=== PATIENT | female | born 1955 | race Caucasian/White ===

== ENCOUNTER 2025-01-17 13:52 | Emergency (ER) | payer MEDICARE, SELFPAY ==
[2025-01-17 13:55] VITALS: BP 121/66; PULSE 75; RESP 16; TEMP 36.6; O2SAT 97; BMI 24.3
--- NOTE | 2025-01-17 14:06 | ED_ITS ---
<Statement entered by Zach Chong, - 01/17/25 17:06> Dr. Chong: I was immediately available in the department for consultation. I did not actually see the patient. HPI - Extremity Injury (Upper) General Chief Complaint: Extremity Problem,Nontraumatic Stated Complaint: R wrist pain - broken? Time Seen by Provider: 01/17/25 14:05 History of Present Illness HPI narrative: Ms. Alcantar is a pleasant 69-year-old female with a past medical history of lymp dorys in remission who presents to the emergency department for right wrist pain x 2 weeks. She is right-hand dominant. She noticed the pain started about 2 weeks ago after lifting heavy boxes. She picked up a box and immediately felt some pain in the wrists and with a box back down. Pain is focally over the ulnar aspect of the right wrist. She has continued doing her normal exercise, biking and other activity since then. She has been wearing a brace she purchased [id number]. Was playing pickleball last week and feeling well. Yesterday she went on a long bike ride and noticed that the ulnar right wrist pain became much worse and has been throbbing. He denies any fall or direct trauma to the wrist. She denies any numbness tingling or weakness distal to the pain. She took 3 aspirin this morning which did help. Reports injuring the right wrist as well many years ago. No fevers or chills or rashes. No other concerns. Related Data Allergies Allergy/AdvReac Type Severity Reaction Status Date / Time No Known Drug Allergies Allergy Verified 01/17/25 14:00 Review of Systems Review of Systems ROS Unobtainable: All systems reviewed & are unremarkable except as noted in HPI and below Exam Narrative Exam Narrative: GENERAL: 69 year old patient appears stated age. Well-developed patient, in no acute distress. HEAD: Atraumatic. Normocephalic. NECK: Trachea midline. Cervical ROM intact. CARDIOVASCULAR: Regular rate RESPIRATORY: ?Nonlabored respirations. ?Speaking in clear, full sentences. EXTREMITIES: 2+ radial pulses bilaterally and sensation and strength intact in the distribution of the median, ulnar, radial nerves bilaterally. Patient has tenderness and mild edema of the ulnar aspect of the right wrist. There is some mild erythema in this area. There is no induration, fluctuance or crepitus. She is still is able to flex, extend, pronate, supinate the wrist. NEURO: AOx3. ?Clear speech. ?Moves all 4 extremities appropriately. SKIN: Mild erythema ulnra aspect R wrist. Otherwise skin is warm, dry, no rashes. Initial Vital Signs Initial Vital Signs: Vital Signs Temperature 97.8 F 01/17/25 13:55 Pulse Rate 75 01/17/25 13:55 Respiratory Rate 16 01/17/25 13:55 Blood Pressure 121/66 01/17/25 13:55 Pulse Oximetry 97 01/17/25 13:55 Oxygen Delivery Method Room Air 01/17/25 13:55 Course Orders Ordered: ED Orders 01/17/25 14:06 XR wrist RT min 3V Stat Vital Signs Vital signs: Vital Signs - 8 hr 01/17/25 13:55 01/17/25 15:02 Temperature 97.8 F 97.4 F L Pulse Rate 75 74 Respiratory Rate 16 16 Blood Pressure 121/66 120/67 Pulse Oximetry 97 99 Oxygen Delivery Method Room Air Room Air MDM - Extremity Injury (Upper) Medical Records Medical records narrative: None available for review Imaging Data Right Wrist XR: Radiologist's Impression: PROCEDURE: XR WRIST RT MIN 3V INDICATIONS: ulnar right wrist pain; remote injury? arthritis? TECHNIQUE: 4 views of the wrist were acquired. COMPARISON: None. FINDINGS: Bones: No fractures or dislocations. No suspicious bony lesions. Mild degenerate arthrosis of the thumb carpometacarpal joint. Soft tissues: Soft tissue calcification along the ulnar styloid. IMPRESSION: Soft tissue calcification along the ulnar styloid may represent calcific tendinopathy of the extensor carpi ulnaris or possible sequela of remote trauma. If indicated, this could be further evaluated with MRI of the wrist without contrast. No acute osseous abnormality. Dictated by: Gomez Torre M.D. on 01/17/2025 at 14:26 Approved by: Gomez Torre M.D. on 01/17/2025 at 14:27 [facility] Narrative Medical decision making narrative: 69-year-old female with a past medical history of lymphoma in remission who presents to the emergency department for right wrist pain x 2 weeks. Differential diagnosis includes but is not limited to right wrist sprain, strain fracture, dislocation, bursitis, gout, etc. On exam the patient is in no acute distress, nontoxic appearing, right hand is neurovascularly intact. She has mild edema, minimal erythema and tenderness in the ulnar aspect of the right wrist. No obvious deformities, 2+ pulse bilaterally, sensation intact to light touch in the distribution of median, radial, ulnar nerves bilaterally with good strength. We will obtain x-ray imaging right wrist, she declines need for anything for pain at this time. Right wrist x-ray reveals soft tissue calcification along the ulnar styloid may represent calcific tendinopathy of the extensor carpi ulnaris or possible sequela of remote trauma. Printed discussed imaging results with the patient. She was placed into a right wrist Velcro splint, recommended rice therapy, NSAIDs and acetaminophen, follow up with ortho. Discussed strict ER return precautions. Patient verbalized understanding of all information agreeable with the plan, she is neurovascularly intact both before and after the application of the splint, she is ambulatory and stable for discharge home. Discharge Plan Departure Patient Disposition: Home Clinical Impression: Calcific tendinitis of right wrist Instructions: DI for Tendinitis, DI for Wrist Pain Activity Restrictions/Additional Instructions: Dear Ms. Alcantar, Thank you for coming to the emergency department. Today you were evaluated for right wrist pain. Your x-ray does not show any broken bones but it does show a calcification along the right side of the wrist which is due to calcification of the tendon or an old injury. Please call and schedule an appointment with [facility] for further evaluation. Please use the right wrist splint for support. Please use RICE therapy for your pain in addition to ibuprofen/acetaminophen. Rest the painful area. Ice the area of pain/swelling for at least 15 minutes, 4x a day. Compress the area of swelling using a brace, wrap, or splint if applied. Elevate the painful or swollen extremity by supporting it above the level of the heart with pillows when sitting or laying. Please take Ibuprofen (Motrin/Advil) or Acetaminophen (Tylenol) for pain. These are available over the counter. You may take Ibuprofen 400 mg every 6 hours with food for pain. You may also take Acetaminophen 650 mg every 4-6 hours for pain. Do not exceed 3000 mg of Tylenol a day as this can cause liver damage. Do not drink alcohol with either of these medications. Please follow up with your primary care doctor within the next 2-3 days for ER follow-up. (If you do not have a PCP you can call [phone]. ?to schedule an appointment with an [facility] Primary Care Provider) IF YOU DEVELOP ANY NEW OR WORSENING SYMPTOMS, RETURN TO THE ER! Please read the attached instructions, they highlight more specific treatments and interventions for you at home. Thank you for letting me participate in your care, Corina Lemus PA-C Referrals: Keira Flores DO [Physician, Orthopedic Surgery] Referral Note: Right wrist calcific tendinopathy Stand Alone Forms: Patient Portal/API
[2025-01-17 15:02] VITALS: BP 120/67; PULSE 74; RESP 16; TEMP 36.3; O2SAT 99
== END 2025-01-17 15:07 | disposition home or self-care (01) ==
PROVIDERS: Emergency Provider Physician Assistant
DX: M65.231 Calcific tendinitis, right forearm (principal)
CPT/HCPCS: 73110; 99282; 99283

== ENCOUNTER → 2025-04-05 09:15 | Outpatient (CLI) | payer MEDICARE, SELFPAY ==
[2025-04-05 10:04] LABS: Cholesterol 225 mg/dL (140-199); HDL Cholesterol 105 mg/dL (40-60); Triglycerides 64 mg/dL (35-150)
[2025-04-05 10:36] LABS: Vitamin D 25 Hydroxy (D3) 60.0 ng/mL (30.0-100.0)
== END ==
PROVIDERS: PCP Family Medicine; Referring Provider Physician Assistant Surgical; Visit Provider Physician Assistant Surgical
DX: E78.5 Hyperlipidemia, unspecified (principal); M81.0 Age-related osteoporosis without current pathological fracture
CPT/HCPCS: 36415; 80061; 82306